=== PATIENT | female | born 1955 | race Two or more races ===

== ENCOUNTER 2019-03-05 19:56 | Emergency (ER) | payer SELFPAY ==
--- NOTE | 2019-03-05 19:58 | PHYS DOC ---
Adult General Chief Complaint Chief Complaint: ". I have... cough... I have fever...." HPI HPI Patient is a 63 year old female who presents with above hx and complaints fever, nasal congestion, cough and malaise last several days. Pt. Visting her son at [place]. Patient is from [facility]. Patient has travel to [facility] and then here to [place]. Patient has been around many relatives who have had upper respiratory infections. Currently in the household with her son with 3 children that have an upper respiratory infections and fevers. Patient has also an upper respiratory infection. Patient denies any significant medical history. Denies history of TB or specific TB exposures. Patient did not get a flu vaccination this season. Son is at bedside. The cough is nonproductive. Review of Systems Review of Systems Constitutional: History of fever Eyes: Denies change in visual acuity, redness, or eye pain [] HENT: History of nasal congestion and postnasal drainage. Respiratory: He of nonproductive cough and some mild wheezing Cardiovascular: No additional information not addressed in HPI [] GI: Denies abdominal pain, nausea, vomiting, bloody stools or diarrhea []. Patient does complain of some mild constipation. : Denies dysuria or hematuria [] Musculoskeletal: Denies back pain or joint pain [] Integument: Denies rash or skin lesions [] Neurologic: Denies headache, focal weakness or sensory changes [] Endocrine: Denies polyuria or polydipsia [] All other systems were reviewed and found to be within normal limits, except as documented in this note. Family History Family History Multiple family members the household had upper respiratory infections including patient Current Medications Current Medications See nursing for home meds Allergies Allergies No known drug allergies Physical Exam Physical Exam Constitutional: Well developed, well nourished, no acute distress, non-toxic appearance. [] HENT: Normocephalic, atraumatic, bilateral external ears normal, oropharynx moist, postnasal drainage and mild erythema, no oral exudates, nose swollen turbinates and clear rhinorrhea Eyes: PERRLA, EOMI, conjunctiva normal, no discharge. [] Neck: Normal range of motion, no tenderness, supple, no stridor. [] Cardiovascular:Heart rate regular rhythm, no murmur [] Lungs & Thorax: Bilateral breath sounds equal at apexes with occasional cough and mild wheezing on auscultation [] Abdomen: Bowel sounds normal, soft, no tenderness, no masses, no pulsatile masses. [] Skin: Warm, dry, no erythema, no rash. [] Back: No tenderness, no CVA tenderness. [] Extremities: No tenderness, no cyanosis, no clubbing, ROM intact, no edema. [] No cording appreciated in legs. Neurologic: Alert and oriented X 3, normal motor function, normal sensory function, no focal deficits noted. [] Psychologic: Affect anxious about her fever, judgement normal, mood normal. [] EKG EKG My interpretation EKG shows a sinus rhythm at 84 bpm. Some mild leftward axis. An fascicular block. No findings acute STEMI of contralateral changes[] Radiology/Procedures Radiology/Procedures [[address] [place] [id number] IMAGING REPORT Signed PATIENT: VIKY CAMACHOACCOUNT: [id number] : 1955 LOCATION: ER AGE: 63 SEX: F EXAM STATUS: REG ER ORD. PHYSICIAN: SERAFIN INGRAM MD REASON: fever, cough PROCEDURE: CHEST PA & LATERAL EXAM: PA and Lateral Views of the Chest DATE: 03/05/2019 7:59 PM INDICATION: Fever, cough COMPARISON: No Prior FINDINGS: The heart is not enlarged. Aorta is mildly tortuous. Linear opacities left lung base likely scarring/atelectasis. No pleural effusion or pneumothorax. Moderate colonic stool content is seen. IMPRESSION: No radiographic evidence for acute cardiopulmonary process Electronically signed by: Rich De Leon MD (03/05/2019 9:26 PM) [facility] DICTATED AND SIGNED BY: RICH DE LEON MD DATE: 03/05/192125 CC: SERAFIN INGRAM MD; PCP,NO ~ ][address] [address] IMAGING REPORT Signed PATIENT: VIKY CAMACHOACCOUNT: [id number] : 1955 LOCATION: ER AGE: 63 SEX: F EXAM STATUS: REG ER ORD. PHYSICIAN: SERAFIN INGRAM MD REASON: fever, cough PROCEDURE: CHEST PA & LATERAL EXAM: PA and Lateral Views of the Chest DATE: 03/05/2019 7:59 PM INDICATION: Fever, cough COMPARISON: No Prior FINDINGS: The heart is not enlarged. Aorta is mildly tortuous. Linear opacities left lung base likely scarring/atelectasis. No pleural effusion or pneumothorax. Moderate colonic stool content is seen. IMPRESSION: No radiographic evidence for acute cardiopulmonary process Electronically signed by: Rich De Leon MD (03/05/2019 9:26 PM) [facility] DICTATED AND SIGNED BY: RICH DE LEON MD DATE: 03/05/192125 CC: SERAFIN INGRAM MD; PCP,NO ~ Course & Med Decision Making Course & Med Decision Making Pertinent Labs and Imaging studies reviewed. (See chart for details) Patient take Tylenol and ibuprofen as needed for fever and chills. Use MDI 2 puffs 4 times a day. Take prednisone 50 mg day 5 days. Benadryl 25-50 mg 4 times a day for nasal drainage and congestion. May also help with cough suppression. To follow up with primary care. Return if any concerns. Impression: 1. Upper Respiratory Infection 2. Viral Syndrome [] Dragon Disclaimer Dragon Disclaimer This electronic medical record was generated, in whole or in part, using a voice recognition dictation system. Departure Departure: Disposition: 01 HOME/RESIDENCE PRIOR TO ADM Condition: STABLE Scripts Prednisone (PREDNISONE) 50 Mg Tablet 50 MG PO DAILY for cough for 5 Days, #5 TAB Prov: SERAFIN INGRAM MD 03/05/19 [place] Disclaimer This chart was dictated in whole or in part using Voice Recognition software in a busy, high-work load, and often noisy Emergency Department environment. It may contain unintended and wholly unrecognized errors or omissions. Dragon Disclaimer This chart was dictated in whole or in part using Voice Recognition software in a busy, high-work load, and often noisy Emergency Department environment. It may contain unintended and wholly unrecognized errors or omissions. SERAFIN INGRAM MD Mar 05, 2019 19:58
[2019-03-05] MEDS ORDERED: IV RINGERS SOLUTION,LACTATED 1,000 ML IV SCH (19:59)
[2019-03-05] MEDS ORDERED: predniSONE 10 MG TABLET PO ONE (20:00)
[2019-03-05] MEDS ORDERED: ALBUTEROL SULFATE 8GM INHALER. INH ONE (20:30)
[2019-03-05] MEDS ORDERED: ACETAMINOPHEN 500 MG TABLET PO ONE (20:30)
--- NOTE | 2019-03-05 21:30 | RAD ---
EXAM: PA and Lateral Views of the Chest DATE: 03/05/2019 7:59 PM INDICATION: Fever, cough COMPARISON: No Prior FINDINGS: The heart is not enlarged. Aorta is mildly tortuous. Linear opacities left lung base likely scarring/atelectasis. No pleural effusion or pneumothorax. Moderate colonic stool content is seen. IMPRESSION: No radiographic evidence for acute cardiopulmonary process Electronically signed by: Rich De Leon MD (03/05/2019 9:26 PM) [facility]
[2019-03-05 21:33] LABS: INFLUENZA A PATIENT NEGATIVE (NEGATIVE); INFLUENZA B PATIENT NEGATIVE (NEGATIVE)
[2019-03-05] MEDS ORDERED: PRED50TA PO (21:43)
[2019-03-05 22:00] VITALS: BP 126/88
--- NOTE | 2019-03-05 22:26 | EKG ---
[address] [address] Test Date: 2019-03-05 Test Time: 20:14:32 Pat Name: VIKY RODRIGUEZGAILAdelitapartment: Room: Gender: F [employer]: : 1955 Requested By: SERAFIN INGRAM Order Number: [id number] Reading MD: Measurements Intervals [place] Rate: 84 P: 44 WI: 170 QRS: -43 QRSD: 96 T: 25 QT: 378 QTc: 450 Interpretive Statements SINUS RHYTHM ABNORMAL LEFT AXIS DEVIATION LEFT ANTERIOR FASCICULAR BLOCK ABNORMAL ECG RI6.01 No previous ECG available for comparison
== END 2019-03-05 22:00 | disposition home or self-care (01) ==
LOC: ER 19:56
DX: B34.9 Viral infection, unspecified (principal); J06.9 Acute upper respiratory infection, unspecified
CPT/HCPCS: 71046; 87070; 87804; 87880; 93005; 94640; 99285; J7512; J7613